=== PATIENT | female | born 1980 | race Caucasian/White ===

== ENCOUNTER 2023-08-07 22:09 | Inpatient (IN) ==
[2023-08-07] MEDS ORDERED: LIDOCAINE 1% LOCAL 20 ML VIAL INFIL PRN (22:25)
[2023-08-07] MEDS ORDERED: OXYTOCIN 30 UNITS/NSS 30 UNITS/500 ML BAG IV PRN ×2 (22:25→23:05)
[2023-08-07] MEDS ORDERED: MAG SULFATE 4GM BOLUS FROM BAG IV ONE (22:27)
[2023-08-07] MEDS ORDERED: LABETALOL HCL IV 5 MG/ML 20ML IV STA ×3 (22:27→23:26)
[2023-08-07] MEDS ORDERED: MAG SULFATE 6GM BOLUS FROM BAG IV ONE (22:27)
[2023-08-07] MEDS ORDERED: MAGNESIUM SULFATE 40GM / WTR 1,000 ML BAG IV ONE (22:34)
[2023-08-07] MEDS ORDERED: LABETALOL HCL IV 5 MG/ML 20ML IV ONE (22:36)
[2023-08-07] MEDS ORDERED: Patient's ALLERGY Info needs ENTERED STA (22:36)
--- NOTE | 2023-08-07 22:39 | History & Physical Report ---
Date of Service August 07, 2023 Assessment & Plan (1) 40 weeks gestation of : Plan: Admit, routine labs, Schaefer catheter, SCDs Rescue labetalol 20 mg IV stat PIH labs Plan for AROM after patient has gotten an IV (2) Severe preeclampsia: Plan: Start IV magnesium sulfate for seizure prophylaxis immediately (3) Chronic hypertension affecting : (4) High risk due to history of previous obstetrical problem in third trimester: (5) History of delivery, currently in third trimester: (6) AMA (advanced maternal age) multigravida 35+: (7) History of hemorrhage, currently in third trimester: (8) Hx LEEP (loop electrosurgical excision procedure), cervix, : Admission and Anticipated Discharge Date Admission Date: August 07, 2023 History of Present Illness Chief Complaint: ctx Primary Care Provider: NO PCP Patient is a 43-year-old -1-0-5 at 40 weeks and 3 days who presented to labor and delivery floor with ongoing contractions and vaginal bleeding. Notes good movement. Denies any leaking of fluid. Denies any headache, blurry vision, right upper quadrant or epigastric pain. Upon presentation patient was noted to be chronic hypertension on labetalol 200 mg twice daily. Last took her dose at 2 PM, did not take her evening dose. Noted initial blood pressure to be 198/110. She was recommended to be delivered between 37 and 39 weeks per [facility] for chronic hypertension on medication, however patient declined and was scheduled initially for induction next week. has been complicated by history of delivery, history of hemorrhage, history of loop electrosurgical excision procedure, history of abnormal Pap smear and a high risk . She is also AMA Patient History OB History -1-0-5 history of vaginal delivery x 4 History of hemorrhage in the last delivery [employer] History See record Denies any STDs, denies any history of drug use Review of Systems All systems reviewed & are unremarkable except as noted in HPI & below Physical Exam Constitutional: WD/WN, vitals as above Respiratory: normal respiratory effort, lungs clear to auscultation Cardiovascular: RRR, no murmur, no edema Gastrointestinal (Abdomen): normal bowel sounds, soft, nontender, no hepatosplenomegaly gravid, vertex Results & Data Vital Signs (Past 12 Hours) Vital Signs Pulse BP 08/07/23 22:31 99 H 196/121 H 08/07/23 22:23 76 198/110 H Monitoring External Monitor Baseline 150, moderate variability, variable deceleration, category 2 tracing Tocodynamometer Contractions every 2 to 3 minutes
[2023-08-07] MEDS: LACTATED RINGER'S 1,000 ML IV PRN (22:41)
[2023-08-07] MEDS: LABETALOL HCL 200 MG TAB PO SCH (23:00)
--- NOTE | 2023-08-07 23:07 | Obstetrical Progress Note ---
Date of Service August 07, 2023 Assessment & Plan (1) 40 weeks gestation of : Plan: Rescue labetalol 20 mg IV stat, repeat BP severe. 40mg IV stat (200mg PO given) Start pit for augmentation (2) Severe preeclampsia: Plan: Continue IV magnesium sulfate for seizure prophylaxis immediately (3) Chronic hypertension affecting : (4) High risk due to history of previous obstetrical problem in third trimester: (5) History of delivery, currently in third trimester: (6) AMA (advanced maternal age) multigravida 35+: (7) History of hemorrhage, currently in third trimester: (8) Hx LEEP (loop electrosurgical excision procedure), cervix, : Admission and Anticipated Discharge Date Admission Date: August 07, 2023 Subjective Declines epidural Physical Exam Genitourinary: FHT: baseline 150, mod variability, no accels, early decles Cumby: ctx 3-7 min Cx: 4/90/-2 AROM moderate to thick mec, no cord felt, no complications Results & Data Vital Signs (Past 12 Hours) Vital Signs Temp Pulse Resp BP 08/07/23 23:04 94 H 202/115 H 08/07/23 22:59 81 175/104 H 08/07/23 22:56 84 180/106 H 08/07/23 22:53 84 179/110 H 08/07/23 22:51 80 178/105 H 08/07/23 22:48 79 198/108 H 08/07/23 22:41 80 206/113 H 08/07/23 22:40 86 195/113 H 08/07/23 22:39 87 202/120 H 08/07/23 22:31 99 H 196/121 H 08/07/23 22:23 76 198/110 H 08/07/23 22:20 36.9 C 18
[2023-08-07] MEDS: MAGNESIUM SULFATE / WTR 40 GM/1,000 ML BAG IV SCH (23:10)
[2023-08-07 23:11] LABS: Hematocrit (blood only) 38.2 % (37.0-47.0); Hemoglobin 12.9 g/dl (12.0-16.0); Mean Corpuscular Hemoglobin 30.6 pg (25.0-34.0); Mean Corpuscular Hgb Conc 33.8 g/dL (32.0-36.0); Mean Corpuscular Volume 90.5 fL (80.0-100.0); Mean Platelet Volume 11.8 fL (9.4-12.4); Platelet Count 202 K/uL (130-400); RDW Coefficient of Variation 13.2 % (11.5-14.5); RDW Standard Deviation 43.7 fL (36.4-46.3); Red Blood Count 4.22 M/uL (4.20-5.40); White Blood Count 14.53 K/ul (4.8-10.8)
[2023-08-07 23:21] LABS: Total Protein Urine Random 48.7 mg/dl (0-11.9)
[2023-08-07 23:26] LABS: Albumin Globulin Ratio 1.3 (0.9-2); Albumin Level 3.6 gm/dl (3.4-5.0); BUN Creatinine Ratio 13.3 (10-20); Bilirubin,Total 0.2 mg/dl (0.2-1.0); Calcium 9.5 mg/dl (8.6-10.3); Creatinine Clr Calc Pharmacy 84.6 ml/min; Est GFR (African American) 101.5 ml/min; Est GFR (Non-African American) 87.6 ml/min; Globulin 2.8 gm/dl (2.5-4.0); Potassium 4.2 mmol/L (3.5-5.1); Total Protein 6.4 gm/dl (6.0-8.3)
[2023-08-07 23:26] LABS: Creatinine Urine Random 47.3 mg/dl
[2023-08-08] MEDS ORDERED: BENZOCAINE 20% SPRY 85 APPLN/85 GM CAN EXT PRN (00:45)
[2023-08-08] MEDS ORDERED: HYDROCORTISONE ACETATE 25 MG SUPP PR PRN (00:45)
[2023-08-08] MEDS ORDERED: OXYTOCIN 30 UNITS/NSS 30 UNITS/500 ML BAG IV PRN (00:45)
[2023-08-08] MEDS ORDERED: bisacodyL 10 MG SUPP PR PRN (00:45)
[2023-08-08] MEDS ORDERED: DIPHTHERIA/TETANUS/PERTUSSIS Vaccine (Tdap, Age 7+yrs) 0.5mL SYR/VL IM ONE (00:45)
--- NOTE | 2023-08-08 00:51 | Delivery Summary ---
Vaginal Delivery Summary Date of Service August 08, 2023 Vaginal Delivery Summary Delivery Note History synopsis: Patient is a 43-year-old -1-0-5 admitted at 40 weeks and 3 days for chronic hypertension with superimposed preeclampsia with with severe features. Patient had magnesium sulfate started for seizure prophylaxis and received labetalol 20 mg, 40 mg and 80 mg IV as well as 200 mg p.o. On admission patient was 3 to 4 cm, after patient obtained IV AROM was performed with moderate to thick meconium. Patient had extremely labile blood pressures and the decision was made to start hydralazine IV, however during that time patient was noted to be complete and pushed and I was called for delivery Delivery Summary: When I had entered the room patient had already delivered by nursing staff. The was immediately placed on mother's abdomen, dried and stimulated. The infants mouth and nose were bulb suctioned by nursing staff. A male infant was delivered at 0030, weight pending with APGARS of 7at 1 minute and 8 at 5 minutes. The was handed off to the awaiting nursing staff. Patient was then placed in dorsal lithotomy position Cord blood gases were not obtained. The placenta delivered intact with three vessel cord at 0034. Placenta was sent to pathology. Thirty units of Pitocin were added to the IV fluid and allowed to run freely. Uterine massage was performed until uterus was deemed firm. Upon inspection of the perineum, cervix were intact. First degree laceration was noted which was infiltrated with local lidocaine and repaired with 3-0 vicryl in the usual fashion. Upon re-inspection the patient was hemostatic. Uterus again massaged and found to be firm. Needle and sponge counts were correct. Patient was stable and allowed to recover in L&D room. Infant was stable and remained in room with mother in the labor and delivery unit. Will continue magnesium sulfate for 24 hours postdelivery Schaefer catheter was inserted sterilely by nursing staff after delivery EBL 300 mls
[2023-08-08] MEDS ORDERED: hydrALAZINE HCL 20 MG/ML VIAL IV STA (01:05)
[2023-08-08] MEDS ORDERED: NIFEdipine 10 MG CAP PO STA (01:05)
[2023-08-08] MEDS ORDERED: SODIUM CHLORIDE 0.9% 250 ML IV PRN (01:06)
--- OUTSIDE RECORDS SUMMARY | 2023-08-08 05:27 | External Medical Summary ---
Author Name Unknown Address Unknown Organization R4[facility] [address] [address] Laboratory Report Ordering Provider Test Date Status PARAM JARAMILLO 06/16/2023 13:33:00 Final Observation Date Value Abnormality Reference (Units ) Status ABO/Rh (D) 06/16/2023 14:32 A POSITIVE F inal Performing Location [facility] [address] [address]
--- OUTSIDE RECORDS SUMMARY | 2023-08-08 05:27 | External Medical Summary ---
Author Name Unknown Address Unknown Organization [facility] [address] [address] Laboratory Report Ordering Provider Test Date Status PARAM JARAMILLO 06/16/2023 13:33:00 Final Observation Date Value Abnormality Reference (Units ) Status Glucose 06/16/2023 14:30 85 70-99 (mg/dL) Final BUN 06/16/2023 14:30 8 7-18 (mg/dL) Final Creatinine 06/16/2023 14:30 0.65 0.60-1.30 (m g/dL) Final eGFR 06/16/2023 14:30 113 >59 (mL/min/1 .73m2) Final eGFR = 142 X [min(Scr/k,1)]* *a [max(Scr/k,1)-1.200x0.9938age X 1.012 [if female] Where Scr is serum creatinine; k is 0.7 for females and 0.9 males; a is -0.241 for females and -0.302 for males; min indicates the minimum of Scr/k or 1, max indicates the maximum of Scr/k or 1 Sodium 06/16/2023 14:30 138 136-145 (mmol /L) Final Potassium 06/16/2023 14:30 3.7 3.6-5.0 (mmol /L) Final Chloride 06/16/2023 14:30 104 101-111 (mmol /L) Final CO2 06/16/2023 14:30 22 21-31 (mmol/L ) Final Anion Gap 06/16/2023 14:30 16 6-16 (mmol/L) Final Calcium 06/16/2023 14:30 9.1 8.4-10.5 (mg/ dL) Final Total Protein 06/16/2023 14:30 6.7 6.0-8.3 ( g/dL) Final Albumin 06/16/2023 14:30 3.2 3.2-5.5 (g/dL ) Final Bilirubin, Total 06/16/2023 14:30 0.4 0.2-1. 0 (mg/dL) Final AST 06/16/2023 14:30 22 10-42 (U/L) F inal ALT 06/16/2023 14:30 17 10-60 (U/L) F inal Alkaline Phosphatase 06/16/2023 14:30 72 42 -121 (U/L) Final Performing Location [facility] [address] [address]
--- OUTSIDE RECORDS SUMMARY | 2023-08-08 05:28 | External Medical Summary ---
Author Name Unknown Address Unknown Organization [facility] [address] [address] Laboratory Report Ordering Provider Test Date Status PARAM JARAMILLO 06/16/2023 13:33:00 Final Observation Date Value Abnormality Reference (Units ) Status Prothrombin Time 06/16/2023 14:26 11.8 11.8-1 4.4 (Sec) Final INR 06/16/2023 14:26 0.9 Fin al Performing Location [facility] [address] [place] [address]
--- OUTSIDE RECORDS SUMMARY | 2023-08-08 05:28 | External Medical Summary ---
Author Name Unknown Address Unknown Organization R4[facility] [address] [place] [address] Laboratory Report Ordering Provider Test Date Status PARAM JARAMILLO 06/16/2023 13:33:00 Final Observation Date Value Abnormality Reference (Units ) Status WBC 06/16/2023 14:01 14.2 Above high normal 4.0-10.0 (X10E+09/L) Final RBC 06/16/2023 14:01 4.14 3.9-5.2 (X10E+12/L) Final Hemoglobin 06/16/2023 14:01 12.7 11.2-15.7 (g/dL) Final Hematocrit 06/16/2023 14:01 38.2 34-45 (%) Final MCV 06/16/2023 14:01 92.4 79-98 (fL) Final MCH 06/16/2023 14:01 30.7 26.0-32.0 (pg) Final MCHC 06/16/2023 14:01 33.3 32-36 (g/dL) Final Platelets 06/16/2023 14:01 201 150-370 (X10E+09/L) Final RDW 06/16/2023 14:01 13.7 (%) Final Neutrophils 06/16/2023 14:01 81.5 Above high normal 34.0-71.1 (%) Final Lymphocytes 06/16/2023 14:01 12.1 Below low normal 19.3-51.7 (%) Final Monocytes 06/16/2023 14:01 4.0 Below low normal 4.7-12.5 (%) Final Eosinophils 06/16/2023 14:01 2.1 0.7-5.8 (%) Final Basophils 06/16/2023 14:01 0.3 0.1-1.2 (%) Final Absolute Neutrophils 06/16/2023 14:01 11.60 Above high normal 1.6-6.1 (X10E+09/L) Final Absolute Lymphocytes 06/16/2023 14:01 1.70 1.2-3.7 (X10E+09/L) Final Absolute Monocytes 06/16/2023 14:01 0.60 0.2-0.9 (X10E+09/L) Final Absolute Eosinophils 06/16/2023 14:01 0.30 0.0-0.4 (X10E+09/L) Final Absolute Basophils 06/16/2023 14:01 0.00 0.0-0.1 (X10E+09/L) Final Performing Location [facility] [address] [place] [address]
[2023-08-08 06:25] LABS: Basophils # (auto) 0.05 K/uL (0.00-0.20); Basophils % (auto) 0.3 %; Eosinophils # (auto) 0.08 K/uL (0.00-0.50); Eosinophils % (auto) 0.4 %; Hematocrit (blood only) 34.6 % (37.0-47.0); Hemoglobin 11.6 g/dl (12.0-16.0); Immature Granulocytes # (auto) 0.11 K/uL (0.01-0.20); Immature Granulocytes % (auto) 0.6 %; Lymphocytes # (auto) 1.61 K/uL (1.20-3.40); Lymphocytes % (auto) 8.1 %; Mean Corpuscular Hemoglobin 30.3 pg (25.0-34.0); Mean Corpuscular Hgb Conc 33.5 g/dL (32.0-36.0); Mean Corpuscular Volume 90.3 fL (80.0-100.0); Mean Platelet Volume 11.7 fL (9.4-12.4); Monocytes # (auto) 0.78 K/uL (0.11-0.59); Monocytes % (auto) 3.9 %; Neutrophils # (auto) 17.37 K/uL (1.40-6.50); Neutrophils % (auto) 86.7 %; Platelet Count 175 K/uL (130-400); RDW Coefficient of Variation 13.2 % (11.5-14.5); RDW Standard Deviation 43.4 fL (36.4-46.3); Red Blood Count 3.83 M/uL (4.20-5.40)
--- NOTE | 2023-08-08 06:49 | Progress Note ---
Date of Service August 08, 2023 Assessment & Plan (1) 40 weeks gestation of : Plan: Continue routine PP care (2) Severe preeclampsia: Plan: Continue IV magnesium sulfate for seizure prophylaxis 24 hrs post delivery Urine output adequate No signs or symptoms of mag toxicity (3) Chronic hypertension affecting : (4) High risk due to history of previous obstetrical problem in third trimester: (5) History of delivery, currently in third trimester: (6) AMA (advanced maternal age) multigravida 35+: (7) History of hemorrhage, currently in third trimester: (8) Hx LEEP (loop electrosurgical excision procedure), cervix, : Admission and Anticipated Discharge Date Admission Date: August 07, 2023 Subjective Patient continues to have nonsevere blood pressures. In total she received labe talol 20 mg, 40 mg, 80 mg IV, labetalol 200 mg p.o., hydralazine 10 mg IV, nifedipine 10 mg p.o. She will get labetalol 200 mg 3 times daily and nifedipine 30 mg extended release this morning Physical Exam Constitutional: WD/WN, vitals as above Respiratory: normal respiratory effort, lungs clear to auscultation Cardiovascular: RRR, no murmur, no edema Gastrointestinal (Abdomen): normal bowel sounds, soft, nontender, no h epatosplenomegaly fundus below U Neurologic: patellar DTR's 2+ bilat, sensation intact Results & Data Vital Signs (Past 12 Hours) Vital Signs Temp Pulse Resp BP Pulse Ox 08/08/23 06:45 93 08/08/23 06:45 73 08/08/23 06:41 95 08/08/23 06:41 77 08/08/23 06:36 97 08/08/23 06:36 74 08/08/23 06:31 97 08/08/23 06:31 76 08/08/23 06:26 98 08/08/23 06:26 80 08/08/23 06:21 98 08/08/23 06:21 87 08/08/23 06:16 97 08/08/23 06:16 80 08/08/23 06:11 98 08/08/23 06:11 79 08/08/23 06:06 97 08/08/23 06:06 76 08/08/23 06:04 73 12/21/23 06:04 123/74 08/08/23 06:02 95 08/08/23 06:02 72 08/08/23 06:00 16 08/08/23 05:58 93 08/08/23 05:58 73 08/08/23 05:56 97 08/08/23 05:56 75 08/08/23 05:53 93 08/08/23 05:53 79 08/08/23 05:52 95 08/08/23 05:52 71 08/08/23 05:46 95 08/08/23 05:46 73 08/08/23 05:41 94 08/08/23 05:41 71 08/08/23 05:40 94 08/08/23 05:40 75 08/08/23 05:37 96 08/08/23 05:37 74 08/08/23 05:32 93 08/08/23 05:32 71 08/08/23 05:31 97 08/08/23 05:31 72 08/08/23 05:27 93 08/08/23 05:27 74 08/08/23 05:26 96 08/08/23 05:26 70 08/08/23 05:22 94 08/08/23 05:22 75 08/08/23 05:17 94 08/08/23 05:17 76 08/08/23 05:16 96 08/08/23 05:16 71 08/08/23 05:12 94 08/08/23 05:12 77 08/08/23 05:11 94 08/08/23 05:11 71 08/08/23 05:06 94 08/08/23 05:06 74 08/08/23 05:05 94 08/08/23 05:05 79 08/08/23 05:04 75 08/08/23 05:04 115/68 08/08/23 05:01 97 08/08/23 05:01 84 08/08/23 05:00 18 08/08/23 04:56 94 08/08/23 04:56 72 08/08/23 04:54 94 08/08/23 04:54 76 08/08/23 04:51 96 08/08/23 04:51 71 08/08/23 04:48 94 08/08/23 04:48 75 08/08/23 04:46 98 08/08/23 04:46 74 08/08/23 04:43 94 08/08/23 04:43 80 08/08/23 04:41 98 08/08/23 04:41 85 08/08/23 04:36 97 08/08/23 04:36 78 08/08/23 04:31 94 08/08/23 04:31 77 08/08/23 04:31 94 08/08/23 04:31 78 08/08/23 04:26 97 08/08/23 04:26 91 H 08/08/23 04:21 97 08/08/23 04:21 90 08/08/23 04:16 98 08/08/23 04:16 80 08/08/23 04:11 96 08/08/23 04:11 81 08/08/23 04:06 98 08/08/23 04:06 80 08/08/23 04:01 98 08/08/23 04:01 76 08/08/23 04:00 36.5 C 08/08/23 04:00 16 08/08/23 03:59 82 08/08/23 03:59 115/72 08/08/23 03:57 99 08/08/23 03:57 90 08/08/23 03:52 98 08/08/23 03:52 83 08/08/23 03:47 99 08/08/23 03:47 81 08/08/23 03:42 97 08/08/23 03:42 87 08/08/23 03:37 98 08/08/23 03:37 82 08/08/23 03:32 97 08/08/23 03:32 79 08/08/23 03:26 97 08/08/23 03:26 82 08/08/23 03:22 98 08/08/23 03:22 92 H 08/08/23 03:19 83 08/08/23 03:19 127/76 08/08/23 03:17 96 08/08/23 03:17 84 08/08/23 03:00 16 08/08/23 02:45 80 08/08/23 02:45 119/64 08/08/23 02:30 81 08/08/23 02:30 116/63 08/08/23 02:15 91 H 08/08/23 02:15 117/71 08/08/23 02:00 16 08/08/23 02:00 88 08/08/23 02:00 115/69 08/08/23 01:45 78 08/08/23 01:45 149/91 H 08/08/23 01:30 68 08/08/23 01:30 154/98 H 08/08/23 01:15 71 08/08/23 01:15 166/95 H 08/08/23 01:04 75 08/08/23 01:04 172/104 H 08/08/23 01:01 75 08/08/23 01:01 191/110 H 08/08/23 01:00 16 08/08/23 00:43 80 08/08/23 00:43 163/90 H 08/08/23 00:40 83 08/08/23 00:40 150/118 H 08/08/23 00:37 83 08/08/23 00:37 136/71 08/08/23 00:34 84 08/08/23 00:34 149/76 H 08/08/23 00:31 80 08/08/23 00:31 152/101 H 08/08/23 00:28 75 08/08/23 00:28 153/103 H 08/08/23 00:25 78 08/08/23 00:25 153/105 H 08/08/23 00:22 75 08/08/23 00:22 181/109 H 08/08/23 00:19 84 08/08/23 00:19 178/107 H 08/08/23 00:16 73 154/103 H 08/08/23 00:12 162/87 H 08/08/23 00:10 75 162/87 H 08/08/23 00:07 77 172/86 H 08/08/23 00:04 75 159/82 H 08/08/23 00:01 77 175/98 H 08/08/23 00:00 16 08/07/23 23:58 79 169/86 H 08/07/23 23:54 81 208/106 H 08/07/23 23:50 80 165/107 H 08/07/23 23:47 80 173/103 H 08/07/23 23:45 16 08/07/23 23:45 16 08/07/23 23:44 82 164/93 H 08/07/23 23:42 76 178/95 H 08/07/23 23:39 79 187/87 H 08/07/23 23:36 81 185/110 H 08/07/23 23:33 80 188/115 H 08/07/23 23:30 77 16 174/111 H 08/07/23 23:26 81 196/118 H 08/07/23 23:24 78 186/110 H 08/07/23 23:18 75 189/115 H 08/07/23 23:15 77 16 166/90 H 08/07/23 23:11 80 181/107 H 08/07/23 23:09 89 190/114 H 08/07/23 23:05 90 194/118 H 08/07/23 23:04 94 H 202/115 H 08/07/23 23:00 16 08/07/23 22:59 81 175/104 H 08/07/23 22:56 84 180/106 H 08/07/23 22:53 84 179/110 H 08/07/23 22:51 80 178/105 H 08/07/23 22:48 79 198/108 H 08/07/23 22:41 80 206/113 H 08/07/23 22:40 86 195/113 H 08/07/23 22:39 87 202/120 H 08/07/23 22:31 99 H 196/121 H 08/07/23 22:23 76 198/110 H 08/07/23 22:20 36.9 C 18 Laboratory Results Laboratory Results WBC 20.00 K/ul (4.8-10.8) H 08/08/23 06:11 RBC 3.83 M/uL (4.20-5.40) L 08/08/23 06:11 Hgb 11.6 g/dl (12.0-16.0) L 08/08/23 06:11 Hct 34.6 % (37.0-47.0) L 08/08/23 06:11 MCV 90.3 fL (80.0-100.0) 08/08/23 06:11 MCH 30.3 pg (25.0-34.0) 08/08/23 06:11 MCHC 33.5 g/dL (32.0-36.0) 08/08/23 06:11 RDW Std Deviation 43.4 fL (36.4-46.3) 08/08/23 06:11 RDW Coeff of Enrique 13.2 % (11.5-14.5) 08/08/23 06:11 Plt Count 175 K/uL (130-400) 08/08/23 06:11 MPV 11.7 fL (9.4-12.4) 08/08/23 06:11 Immature Gran % (Auto) 0.6 % 08/08/23 06:11 Neut % (Auto) 86.7 % 08/08/23 06:11 Lymph % (Auto) 8.1 % 08/08/23 06:11 Cochran % (Auto) 3.9 % 08/08/23 06:11 Eos % (Auto) 0.4 % 08/08/23 06:11 Baso % (Auto) 0.3 % 08/08/23 06:11 Neut # (Auto) 17.37 K/uL (1.40-6.50) H 08/08/23 06:11 Lymph # (Auto) 1.61 K/uL (1.20-3.40) 08/08/23 06:11 Cochran # (Auto) 0.78 K/uL (0.11-0.59) H 08/08/23 06:11 Eos # (Auto) 0.08 K/uL (0.00-0.50) 08/08/23 06:11 Baso # (Auto) 0.05 K/uL (0.00-0.20) 08/08/23 06:11 Immature Gran # (Auto) 0.11 K/uL (0.01-0.20) 08/08/23 06:11 Sodium 136 mmol/L (136-145) 08/07/23 22:46 Potassium 4.2 mmol/L (3.5-5.1) 08/07/23 22:46 Chloride 105 mmol/L (98-107) 08/07/23 22:46 Carbon Dioxide 23 mmol/L (21-32) 08/07/23 22:46 Anion Gap 8 (3-11) 08/07/23 22:46 BUN 11 mg/dl (6-23) 08/07/23 22:46 Creatinine 0.83 mg/dl (0.6-1.2) 08/07/23 22:46 Est Cr Clr Drug Dosing 84.6 ml/min 08/07/23 22:46 Est GFR ( Amer) 101.5 ml/min 08/07/23 22:46 Est GFR (Non-Af Amer) 87.6 ml/min 08/07/23 22:46 BUN/Creatinine Ratio 13.3 (10-20) 08/07/23 22:46 Glucose 94 mg/dl (70-99(Fasting)) 08/07/23 22:46 Calcium 9.5 mg/dl (8.6-10.3) 08/07/23 22:46 Total Bilirubin 0.2 mg/dl (0.2-1.0) 08/07/23 22:46 AST 18 U/L (13-39) 08/07/23 22:46 ALT 13 U/L (7-52) 08/07/23 22:46 Alkaline Phosphatase 166 U/L (34-104) H 08/07/23 22:46 Total Protein 6.4 gm/dl (6.0-8.3) 08/07/23 22:46 Albumin 3.6 gm/dl (3.4-5.0) 08/07/23 22:46 Globulin 2.8 gm/dl (2.5-4.0) 08/07/23 22:46 Albumin/Globulin Ratio 1.3 (0.9-2) 08/07/23 22:46 Ur Random Creatinine 47.3 mg/dl 08/07/23 20:30 U Random Total Protein 48.7 mg/dl (0-11.9) H 08/07/23 20:30 Protein/Creatinin Ratio 1.0 (0-0.2) H 08/07/23 20:30 Blood Type A Positive 08/07/23 22:46 Antibody Screen NEGATIVE 08/07/23 22:46 Crossmatch See Detail 08/07/23 22:46
[2023-08-08 07:06] LABS: Albumin Globulin Ratio 1.3 (0.9-2); Albumin Level 3.1 gm/dl (3.4-5.0); BUN Creatinine Ratio 12.9 (10-20); Bilirubin,Total 0.2 mg/dl (0.2-1.0); Calcium 7.6 mg/dl (8.6-10.3); Creatinine Clr Calc Pharmacy 100.3 ml/min; Est GFR (African American) 124.7 ml/min; Est GFR (Non-African American) 107.6 ml/min; Globulin 2.3 gm/dl (2.5-4.0); Magnesium Therapeutic L&D Only 5.2 mg/dL (4.0-8.0); Potassium 4.1 mmol/L (3.5-5.1); Total Protein 5.4 gm/dl (6.0-8.3)
[2023-08-08] MEDS: ACETAMINOPHEN 325 MG TAB PO PRN (08:45)
[2023-08-08] MEDS: NIFEdipine EXTENDED REL 30 MG TABCR PO SCH (08:46)
[2023-08-08] MEDS ORDERED: NIFEdipine 10 MG CAP PO SCH (09:00)
[2023-08-08] MEDS: DOCUSATE SODIUM 100 MG CAP PO SCH ×2 (09:23→20:40)
[2023-08-08] MEDS: PRENATAL VITAMIN 1 TAB PO SCH (09:23)
[2023-08-08] MEDS: LABETALOL HCL 200 MG TAB PO SCH ×3 (09:23→20:40)
[2023-08-08] MEDS: IBUPROFEN 600 MG TAB PO PRN ×3 (11:05→20:40)
[2023-08-08] MEDS: LACTATED RINGER'S 1,000 ML IV PRN (11:11)
[2023-08-08] MEDS: MAGNESIUM SULFATE / WTR 40 GM/1,000 ML BAG IV SCH (16:37)
[2023-08-09] MEDS: ACETAMINOPHEN 325 MG TAB PO PRN (02:45)
[2023-08-09 06:12] LABS: Basophils # (auto) 0.06 K/uL (0.00-0.20); Basophils % (auto) 0.5 %; Eosinophils # (auto) 0.24 K/uL (0.00-0.50); Eosinophils % (auto) 1.9 %; Hematocrit (blood only) 30.2 % (37.0-47.0); Hemoglobin 10.4 g/dl (12.0-16.0); Immature Granulocytes # (auto) 0.08 K/uL (0.01-0.20); Immature Granulocytes % (auto) 0.6 %; Lymphocytes # (auto) 1.86 K/uL (1.20-3.40); Lymphocytes % (auto) 14.6 %; Mean Corpuscular Hgb Conc 34.4 g/dL (32.0-36.0); Mean Corpuscular Volume 90.1 fL (80.0-100.0); Mean Platelet Volume 11.2 fL (9.4-12.4); Monocytes # (auto) 0.53 K/uL (0.11-0.59); Monocytes % (auto) 4.2 %; Neutrophils # (auto) 9.98 K/uL (1.40-6.50); Neutrophils % (auto) 78.2 %; Platelet Count 165 K/uL (130-400); RDW Coefficient of Variation 13.8 % (11.5-14.5); RDW Standard Deviation 45.3 fL (36.4-46.3); Red Blood Count 3.35 M/uL (4.20-5.40); White Blood Count 12.75 K/ul (4.8-10.8)
[2023-08-09 06:21] LABS: Albumin Globulin Ratio 1.3 (0.9-2); Albumin Level 3.1 gm/dl (3.4-5.0); BUN Creatinine Ratio 10.6 (10-20); Bilirubin,Total 0.2 mg/dl (0.2-1.0); Calcium 6.7 mg/dl (8.6-10.3); Creatinine Clr Calc Pharmacy 106.4 ml/min; Est GFR (African American) 127.2 ml/min; Est GFR (Non-African American) 109.7 ml/min; Globulin 2.3 gm/dl (2.5-4.0); Potassium 3.9 mmol/L (3.5-5.1); Total Protein 5.4 gm/dl (6.0-8.3)
[2023-08-09] MEDS: NIFEdipine EXTENDED REL 30 MG TABCR PO SCH (08:32)
[2023-08-09] MEDS: DOCUSATE SODIUM 100 MG CAP PO SCH (08:33)
[2023-08-09] MEDS: LABETALOL HCL 200 MG TAB PO SCH ×2 (08:33→14:02)
[2023-08-09] MEDS: PRENATAL VITAMIN 1 TAB PO SCH (08:34)
[2023-08-09] MEDS: IBUPROFEN 600 MG TAB PO PRN ×2 (08:38→17:01)
--- NOTE | 2023-08-09 12:13 | Obstetrical Progress Note ---
Date of Service August 09, 2023 Assessment & Plan (1) Normal course: PPD #1 Pt's spouse does not want any male in the room to see her . this was communicated to me through pt's nurse Results & Data Vital Signs (Past 12 Hours) Vital Signs Temp Pulse Pulse Pulse Resp BP Pulse Ox 08/09/23 11:00 36.5 C 78 18 143/79 H 98 08/09/23 07:45 36.3 C L 88 16 154/77 H 08/09/23 04:38 36.4 C L 71 18 154/86 H 97 08/09/23 01:50 36.4 C L 76 18 147/93 H 98 08/09/23 00:33 79 92 08/09/23 00:29 70 95 08/09/23 00:28 73 93 08/09/23 00:24 75 94 08/09/23 00:22 72 94 08/09/23 00:19 82 95 08/09/23 00:16 73 93 08/09/23 00:14 73 94 08/09/23 00:11 80 94 O2 Del Method 08/09/23 11:00 Room Air 08/09/23 07:45 Room Air 08/09/23 04:38 Room Air 08/09/23 01:50 Room Air 08/09/23 00:33 08/09/23 00:29 08/09/23 00:28 08/09/23 00:24 08/09/23 00:22 08/09/23 00:19 08/09/23 00:16 08/09/23 00:14 08/09/23 00:11
--- NOTE | 2023-08-09 12:18 | Obstetrical Progress Note ---
Date of Service August 09, 2023 Assessment & Plan (1) Normal course: PPD #1 pt doing well Anticipate disch tomorrow Results & Data Vital Signs (Past 12 Hours) Vital Signs Temp Pulse Pulse Pulse Resp BP Pulse Ox 08/09/23 11:00 36.5 C 78 18 143/79 H 98 08/09/23 07:45 36.3 C L 88 16 154/77 H 08/09/23 04:38 36.4 C L 71 18 154/86 H 97 08/09/23 01:50 36.4 C L 76 18 147/93 H 98 08/09/23 00:33 79 92 08/09/23 00:29 70 95 08/09/23 00:28 73 93 08/09/23 00:24 75 94 08/09/23 00:22 72 94 08/09/23 00:19 82 95 O2 Del Method 08/09/23 11:00 Room Air 08/09/23 07:45 Room Air 08/09/23 04:38 Room Air 08/09/23 01:50 Room Air 08/09/23 00:33 08/09/23 00:29 08/09/23 00:28 08/09/23 00:24 08/09/23 00:22 08/09/23 00:19
[2023-08-09] MEDS ORDERED: bisacodyL 5 MG TABEC PO SCH (20:00)
== END 2023-08-09 18:15 | disposition home health service (06) | DRG 807 ==
LOC: OPB 22:09 → 4S1 22:16 → 4E2 08-09 01:45